=== PATIENT | male | born 1970 | race Hispanic/Latino ===

== ENCOUNTER 2017-04-09 16:30 | Emergency (ER) | payer OTHER, BC ==
[~2017-04-09] VITALS: Ht 157.5 cm; Wt 68.0 kg
[~2017-04-09 16:30] MED LIST: CLONIDINE0.1 MG PO; LISINOP/HCTZ1 TA1 PO; LOTRISONE CREAM15 GM EX; NAPROSYN500 MG PO; OMEPRAZOLE20 MG PO; PENICILLN VK500 MG PO; ULTRAM50 M1 PO; ZEGERID1 CA1 PO
[2017-04-09 17:45] LABS: HEMOGLOBIN 16.4 g/dl (14.0-18.0); IMMATURE GRANULOCYTES 0.8 % (0.0-1.0); MEAN CELL VOLUME 93.9 fL CALC (80.0-100.0); MEAN CORPUSCULAR HGB 33.5 pG CALC (26.0-32.0); MEAN CORPUSCULAR HGB CONC 35.7 g/L CALC (32.0-36.0); NEUT# 6.7 thou/uL (1.82-7.42); RED BLOOD COUNT 4.9 mill/uL (4.70-6.10); RED CELL DISTRI WIDTH 13.9 % (11.5-15.5)
[2017-04-09 18:09] LABS: ALBUMIN 4.5 g/dL (3.2-5.0); ALKALINE PHOSPHATASE 89 u/l (38-126); ANION GAP 20 (6-22 (CALC)); BILIRUBIN, TOTAL 0.5 mg/dL (0.0-1.4); BUN 8 mg/dL (9-20); BUN/CREATININE RATIO 9 (12-20 (CALC)); CALCIUM 9.7 mg/dL (8.4-10.2); CARBON DIOXIDE 19 mmol/l (22-30); CHLORIDE 105 mmol/l (95-108); CREATININE 0.9 mg/dL (0.7-1.3); ETHYL ALCOHOL 234 mg/dl (0-30); GFR > 60 ML/MIN (>=60 (CALC)); GFR FOR AFR.AMER. > 60 ML/MIN (>=60 (CALC)); GLUCOSE 95 mg/dL (75-110); POTASSIUM 4.5 mmol/l (3.5-5.1); SGOT/AST 44 u/l (17-59); SGPT/ALT 35 u/l (21-72); SODIUM 140 mmol/l (137-146); TOTAL PROTEIN 7.2 g/dL (6.3-8.2)
[2017-04-09 18:42] LABS: URINE BILIRUBIN - DIPSTICK NEGATIVE (NEGATIVE); URINE BLOOD DIPSTICK NEGATIVE (NEGATIVE); URINE COLOR YELLOW; URINE GLUCOSE - DIPSTICK NEGATIVE (NEGATIVE); URINE KETONE NEGATIVE (NEGATIVE); URINE LEUK ESTERASE NEGATIVE (NEGATIVE); URINE NITRITE - DIPSTICK NEGATIVE (Negative); URINE PROTEIN - DIPSTICK NEGATIVE (NEG-TRACE); URINE UROBILINOGEN - DIPSTICK 0.2 E.U./dL (0.2)
[2017-04-09 18:44] LABS: URINE CLARITY CLEAR
[2017-04-09] MEDS ORDERED: ULTRAM50 M1 PO (21:21)
[2017-04-09 21:39] VITALS: BP 132/83
== END 2017-04-09 21:39 | disposition home or self-care (01) | DRG 552 ==
LOC: ED 16:30
PROVIDERS: Emergency Medicine
DX: S16.1XXA Strain of muscle, fascia and tendon at neck level, initial encounter (principal); F10.10 Alcohol abuse, uncomplicated; S20.312A Abrasion of left front wall of thorax, initial encounter; S50.312A Abrasion of left elbow, initial encounter; V49.40XA Driver injured in collision with unspecified motor vehicles in traffic accident, initial encounter
CPT/HCPCS: Q9967

== ENCOUNTER 2017-11-08 10:32 | Emergency (ER) | payer BC ==
[~2017-11-08] VITALS: Ht 157.5 cm; Wt 79.0 kg
[2017-11-08] MEDS ORDERED: LORTAB 5/3255 MG PO (11:49)
[2017-11-08] MEDS ORDERED: IBUPROFEN600 MG PO (11:49)
[2017-11-08 12:10] VITALS: BP 148/88
== END 2017-11-08 12:10 | disposition home or self-care (01) | DRG 563 ==
LOC: ED 10:32
DX: S63.641A Sprain of metacarpophalangeal joint of right thumb, initial encounter (principal); I10 Essential (primary) hypertension; E78.00 Pure hypercholesterolemia, unspecified; F17.210 Nicotine dependence, cigarettes, uncomplicated; Y04.0XXA Assault by unarmed brawl or fight, initial encounter

== ENCOUNTER 2020-12-17 10:09 | Emergency (ER) | payer SELFPAY ==
[~2020-12-17] VITALS: Ht 157.5 cm; Wt 80.0 kg
[~2020-12-17 10:09] MED LIST changes: +IBUPROFEN600 MG PO; +LORTAB 5/3255 MG PO
[2020-12-17 13:05] VITALS: BP 127/94
[2020-12-17] MEDS ORDERED: LISINOPRIL10 MG PO (13:15)
== END 2020-12-17 13:29 | disposition home or self-care (01) | DRG 866 ==
LOC: ED 10:09
DX: B34.9 Viral infection, unspecified (principal); I10 Essential (primary) hypertension; E78.00 Pure hypercholesterolemia, unspecified; F17.200 Nicotine dependence, unspecified, uncomplicated; Z20.822 Contact with and (suspected) exposure to COVID-19

== ENCOUNTER 2023-02-14 09:38 | Emergency (ER) | payer OTHER ==
[~2023-02-14] VITALS: Ht 157.5 cm; Wt 84.0 kg
[2023-02-14] VITALS (12 sets, daily range): BP systolic 144–172; BP diastolic 99–126
[~2023-02-14 09:38] MED LIST changes: +LISINOPRIL10 MG PO
[2023-02-14] MEDS ORDERED: AMOX/K CLAV875 M1 PO (13:00)
[2023-02-14] MEDS ORDERED: NAPROXEN500 MG PO (13:00)
== END 2023-02-14 13:28 | disposition home or self-care (01) | DRG 563 ==
LOC: ED 09:38
DX: S39.012A Strain of muscle, fascia and tendon of lower back, initial encounter (principal); S00.81XA Abrasion of other part of head, initial encounter; S30.0XXA Contusion of lower back and pelvis, initial encounter; V43.62XA Car passenger injured in collision with other type car in traffic accident, initial encounter; L03.116 Cellulitis of left lower limb; S80.872A Other superficial bite, left lower leg, initial encounter; W55.01XA Bitten by cat, initial encounter; I10 Essential (primary) hypertension; E78.5 Hyperlipidemia, unspecified